=== PATIENT | female | born 1975 | race Caucasian/White ===

== ENCOUNTER → 2024-12-06 | Outpatient (CLI) | payer BC, OTHER, SELFPAY ==
[2024-12-06 12:14] LABS: Hematocrit 46.4 % (37-47); Hemoglobin 15.9 g/dL (12.0-15.0); Immature Granulocytes Count 0.010 X10^3/uL (0.0-0.0); Mean Corp Hgb Conc 34.3 g/dL (32-36); Mean Corpuscular Volume 86.4 fL (81-99); Mean Platelet Vol. 10.5 fl (6.2-12.0); NRBC Flagged by Analyzer 0 % (0-5); Platelet Count 353 K/mm3 (150-450); RBC Distribution Width CV 13.8 % (11.6-14.6); RBC Distribution Width SD 43.4 fl (35.1-43.9); Red Blood Count 5.37 M/mm3 (4.2-5.4); White Blood Count 8.5 K/mm3 (4.4-11.0)
[2024-12-06 13:15] LABS: AST(SGOT) 22 U/L (<=31); Alanine Aminotransfer ALT/SGPT 14 U/L (<=34); Albumin, Serum 4.5 g/dL (3.5-5.0); Alkaline Phosphatase 83 U/L (35-104); Anion Gap 13 (5-15); BUN 13 mg/dL (4-19); BUN/Creat Ratio 12.8 RATIO (10-20); Calcium,Total 10.0 mg/dL (7.6-11.0); Carbon Dioxide 24.0 mmol/L (21.0-32.0); Chloride 101 mmol/L (98-108); Globulin 3.1 g/dL (2.2-4.2); Glucose 88 mg/dL (70-99); Potassium 4.2 mmol/L (3.3-5.1)
[2024-12-07 18:01] LABS: Ferritin 66 ng/mL (22-378); Iron 121 ug/dL (50-170); Iron Binding Capacity,Total 351 ug/dL (250-450); Iron Binding Capacity,Unsat 230 ug/dL (228-428)
[2024-12-10 11:08] LABS: Transferrin 295 mg/dL (192-364)
[2024-12-10 16:09] LABS: Thyroglobulin, Serum Qt. 33.2 ng/mL (1.5-38.5); Thyroid Stim Immunoglob <0.10 IU/L (0.00-0.55)
== END | disposition home or self-care (01) ==
LOC: MFPLAB 09:48
PROVIDERS: PCP Internal Medicine; Visit Provider Family Medicine
DX: E07.9 Disorder of thyroid, unspecified (principal); R71.8 Other abnormality of red blood cells
CPT/HCPCS: 36415; 80053; 82728; 83540; 83550; 84432; 84439; 84443; 84445; 84466; 85025; 86800

== ENCOUNTER → 2024-12-18 | Outpatient (CLI) | payer BC, OTHER, SELFPAY ==
--- NOTE | 2024-12-18 09:24 | RAD_ITS ---
EXAM: XR Soft Tissue Neck CLINICAL INDICATION: CERVICAL RADICULOPATHY TECHNIQUE: Frontal and lateral views of the soft tissues of the neck. COMPARISON: No relevant prior studies available. FINDINGS: AIRWAY: Unremarkable. No abnormal narrowing. BONES/JOINTS: Unremarkable. No acute fracture. SOFT TISSUES: Unremarkable. No abnormal soft tissue prominence. Normal epiglottis. OTHER FINDINGS: 10 mm linear opacity in the region of the proximal esophagus. This could be further evaluated with direct visualization. RAD/Neck for Soft Tissue IMPRESSION: 10 mm linear opacity in the region of the proximal esophagus. This could be fu rther evaluated with direct visualization. Reading Location: [id number]
== END | disposition home or self-care (01) ==
LOC: MTRAD 09:24
PROVIDERS: PCP Family Medicine; Referring Provider Family Medicine; Visit Provider Family Medicine
DX: M54.12 Radiculopathy, cervical region (principal)
CPT/HCPCS: 70360

== ENCOUNTER → 2025-01-21 | Outpatient (CLI) | payer BC, OTHER, SELFPAY ==
--- NOTE | 2025-01-21 16:24 | US_ITS ---
PROCEDURE: THYROID 01/21/2025 REASON FOR EXAM: NODULE NOTED ON ULTRASOUND, 1.9 CM RIGHT SIDED AND 9MM LEFT TECHNIQUE: Procedure Code: USTHY Modality: US Procedure: THYROID COMPARISON: None available. FINDINGS: Right thyroid lobe size: 5.4 x 2.4 x 2.2 cm -upper pole, 15 x 15 x 9 mm, solid, heterogeneous, with a smooth margin. TR 3 Left thyroid lobe size: 5.2 x 1.8 x 1.7 cm Upper pole, 8 x 7 x 6 mm, mixed cystic and solid, heterogeneous solid portion, with a smooth margin. TR 2 Isthmus: 3 mm Background parenchymal echotexture is homogeneous. US/Thyroid IMPRESSION: 1. The thyroid gland is enlarged and predominantly homogeneous in echotexture. 2. Recommend 1 year follow-up of the TR 3 nodule in the right thyroid lobe per [facility] rads guidelines. 3. No follow-up is recommended for the TR 2 nodule in the left thyroid lobe. RECOMMENDATION: Based on most suspicious nodule. Nodule size = largest diameter Only evaluate nodule if =>5 mm. Reading Location: [place] [id number]
== END | disposition home or self-care (01) ==
LOC: US 16:19
PROVIDERS: PCP Family Medicine; Referring Provider Family Medicine; Visit Provider Family Medicine
DX: E04.1 Nontoxic single thyroid nodule (principal)
CPT/HCPCS: 76536